=== PATIENT | male | born 1985 | race Two or more races ===

== ENCOUNTER 2024-08-24 18:55 | Emergency (ER) | payer MEDICAID ==
[~2024-08-24] VITALS: Ht 172.7 cm; Wt 69.0 kg
[2024-08-24 19:08] VITALS: TEMP 99.3
[2024-08-24 19:17] LABS: COVID AG,FIA SOURCE NASAL SWAB
[2024-08-24 19:41] LABS: INFLUENZA TYPE A NEGATIVE FOR TYPE A (NEGATIVE); INFLUENZA TYPE B NEGATIVE FOR TYPE B (NEGATIVE); SARS-COV2 (COVID) ANTIGEN,FIA Negative (Negative)
[2024-08-24 22:00] VITALS: BP 144/85; PULSE 87; RESP 17; O2SAT 99
[2024-08-24] MEDS ORDERED: ONDA-104 PO (22:26)
[2024-08-24] MEDS: ONDANSETRON 4 MG TABLET PO ONE (22:34)
== END 2024-08-24 22:48 | disposition home or self-care (01) ==
LOC: EMS 18:55
DX: K52.9 Noninfective gastroenteritis and colitis, unspecified (principal); Z20.822 Contact with and (suspected) exposure to COVID-19
CPT/HCPCS: 99283; 87426; 87804; Q0162

== ENCOUNTER 2024-10-12 09:29 | Emergency (ER) | payer SELFPAY ==
[~2024-10-12] VITALS: Ht 175.3 cm; Wt 77.3 kg
[~2024-10-12 09:29] MED LIST: ONDA-104 PO
[2024-10-12 09:46] VITALS: BP 124/63; PULSE 80; RESP 16; TEMP 101.6; O2SAT 100
[2024-10-12 10:08] LABS: COVID AG,FIA SOURCE NASAL SWAB
[2024-10-12 10:29] LABS: SARS-COV2 (COVID) ANTIGEN,FIA Negative (Negative)
[2024-10-12 10:30] LABS: INFLUENZA TYPE B NEGATIVE FOR TYPE B (NEGATIVE)
[2024-10-12 10:55] LABS: INFLUENZA TYPE A POSITIVE FOR TYPE A (NEGATIVE)
[2024-10-12] MEDS ORDERED: IBUP-1554 PO (11:03)
[2024-10-12] MEDS ORDERED: ACET-2080 PO (11:03)
[2024-10-12] MEDS ORDERED: GUAIFDM PO (11:03)
== END 2024-10-12 11:08 | disposition home or self-care (01) ==
LOC: EMS 09:34
DX: J10.1 Influenza due to other identified influenza virus with other respiratory manifestations (principal); J20.9 Acute bronchitis, unspecified; Z20.822 Contact with and (suspected) exposure to COVID-19
CPT/HCPCS: 87804; 99283